=== PATIENT | female | born 1995 | race Caucasian/White ===

== ENCOUNTER 2019-06-14 15:48 | Emergency (ER) | payer MEDICAID, OTHER ==
[~2019-06-14] VITALS: Ht 162.6 cm; Wt 61.8 kg
[2019-06-14] MEDS ORDERED: ACETAMINOPHEN TAB 650MG DOSE (2X325MG) PO ONE (16:15)
[2019-06-14] MEDS ORDERED: MEDR150I10 (16:21)
--- NOTE | 2019-06-14 16:36 | REP ---
CT of the brain without IV contrast: There are no comparisons. There is no subdural or epidural hematoma. There is no intraparenchymal or subarachnoid hemorrhage. There is no edema, mass effect or midline shift. Ventricles are normal size. The visualized paranasal sinuses and mastoid air cells are unremarkable. Impression: Essentially negative emergency CT study of the brain. Electronically Signed by Tarun Mcmahon MD 06/14/2019 04:27 P
--- NOTE | 2019-06-14 16:42 | REP ---
CT of the cervical spine: Axial images are acquired helical scanning and a reformatted sagittal coronal projections. The skull base, C1-C2 are unremarkable. Vertebral body heights and alignment are normal. The facets are normally aligned. The prevertebral soft tissues are normal. There are pedicle screws and stabilization rods at T2. No posterior element fractures are identified. 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 Impression: No fracture or listhesis. Electronically Signed by Tarun Mcmahon MD 06/14/2019 04:34 P
--- NOTE | 2019-06-14 17:18 | REP ---
Right elbow for views : There is no fracture or dislocation. Mineralization and joint spaces are normal. There are no calcifications or foreign bodies. Impression: Negative right elbow . Electronically Signed by Tarun Mcmahon MD 06/14/2019 05:09 P
[2019-06-14 18:20] VITALS: BP 134/82
== END 2019-06-14 18:26 | disposition home or self-care (01) ==
LOC: M ED 15:48 → EDBD 15:48 → M ED 18:26
DX: S13.4XXA Sprain of ligaments of cervical spine, initial encounter (principal); S50.01XA Contusion of right elbow, initial encounter; V43.52XA Car driver injured in collision with other type car in traffic accident, initial encounter; Y92.9 Unspecified place or not applicable; Y93.9 Activity, unspecified; Y99.9 Unspecified external cause status; M54.9 Dorsalgia, unspecified; F17.200 Nicotine dependence, unspecified, uncomplicated; Z79.3 Long term (current) use of hormonal contraceptives; Z88.8 Allergy status to other drugs, medicaments and biological substances

== ENCOUNTER → 2019-07-06 | Outpatient (CLI) | payer OTHER ==
[~2019-07-06] MED LIST: MEDR150I10
== END ==
LOC: M LABSMTC 12:21
PROVIDERS: ATTEND Family Medicine
DX: Z11.59 Encounter for screening for other viral diseases (principal); Z20.828 Contact with and (suspected) exposure to other viral communicable diseases

== ENCOUNTER → 2019-12-24 | Outpatient (CLI) | payer OTHER | LOC: M PAIN 13:16 | PROVIDERS: ATTEND Nurse Practitioner Family | DX: M79.18 Myalgia, other site (principal) ==

== ENCOUNTER → 2020-01-22 | Outpatient (CLI) | payer OTHER | LOC: M LABSMTC 11:30 | PROVIDERS: ATTEND Anesthesiology | DX: Z20.828 Contact with and (suspected) exposure to other viral communicable diseases (principal) | CPT/HCPCS: C9803; U0003 ==

== ENCOUNTER → 2020-01-27 | Outpatient (CLI) | payer OTHER ==
[~2020-01-27] MED LIST changes: +BUPIVACAINE HCL 0.25% 10ML VIAL As Ordered ONE; +BUPIVACAINE HCL 0.25% 30ML VIAL As Ordered ONE; +ONDANSETRON 4 MG ORAL DISINTEGRATING TAB As Ordered ONE; +TRIAMCINOLONE ACETONIDE SUSP 40 MG/ML VIAL (J3301) As Ordered ONE; +diazePAM 5 MG TAB As Ordered ONE
--- NOTE | 2020-01-31 17:00 | ECWPNPC ---
PATIENT NAME: MARY KAY CANCINO : 1995 GENDER: FEMALE VISIT DATE: 01/27/2020 DISCHARGE DATE: 01/27/20 1511 VISIT LOCKED DATE TIME: PHYSICIAN: GIRISH MEADOWS MD PHYSICIAN PAGER NO: ACTIVE RESOURCE: GIRISH MEADOWS MD REASON FOR APPOINTMENT 1. LEFT NECK/UPPER BACK TPI PRESEDATE W/ VALIUM AND OXYCODONE PO HISTORY OF PRESENT ILLNESS GENERAL: -. FALL RISK SCREENING: SCREENING :NO FALLS REPORTED IN THE LAST YEAR PAIN SCREENING: PATIENT HAS A COMPLAINT OF ACUTE OR CHRONIC PAIN :YES LOCATION OF PAIN:NECK, UPPER BACK INTENSITY OF PAIN (SCALE OF 1 TO 10):6 WHAT DOES YOUR PAIN FEEL LIKE:ACHING, CONTINOUS, SHARP, SHOOTING DURATION:CONTINOUS, RHYTHMIC PAIN IS INCREASED BY:ACTIVITIES PAIN IS DECREASED BY:USE OF PAIN MEDICATIONS, OTHERS NURSING NOTE: -. PAIN CENTER INTAKE QUESTIONS: DO YOU HAVE A HISTORY OF MRSA? :NO DO YOU TAKE A BLOOD THINNERS? :NO DO YOU HAVE ANY BLEEDING DISORDERS? :NO ANY NEW NUMBNESS OR WEAKNESS IN YOUR LEGS OR ARMS? :NO ANY PACEMAKER,DEFIBRILLATOR, OR DORSAL COLUMN STIMULATOR? :NO DO YOU HAVE ANY RASHES OR OPEN SORES? :NO ARE YOU ALLERGIC TO IV DYE? :NO ARE YOU DIABETIC? :NO ANY NEW PROBLEMS WITH YOUR MEDICATIONS? :YES GABAPENTIN MAKES HER FEEL "OFF" HAVE YOU RECEIVED A VACCINE IN THE PAST 30 DAYS? :NO DO YOU PLAN TO RECEIVE A VACCINE IN THE NEXT 21 DAYS? :NO DO YOU TAKE ANY IMMUNOSUPPRESSIVE MEDICATIONS? :NO ANY HISTORY OF SEIZURES? :NO ANY HISTORY OF CARDIAC ISSUES OR EVENTS? :NO DO YOU HAVE SLEEP APNEA? :NO ANY RECENT HEAD INJURY? :NO DO YOU HAVE ANY NEW INFECTIONS? :YES "CYST IN BUTTOCKS AREA". COMPLETED ANTIBIOTICS 1-2 WEEKS AGO. IS THERE A CHANCE YOU COULD BE ? :NO ARE YOU BREAST FEEDING? :NO WHEN DID YOU LAST EAT? : -01/25 1900 WHEN DID YOU LAST DRINK? : -01/26 1100 WHAT DID YOU LAST DRINK? : -WATER NAME OF PERSON DRIVING YOU HOME? : -EMY DO YOU HAVE ANY OTHER QUESTIONS OR CONCERNS? : - CURRENT MEDICATIONS TAKING GABAPENTIN 100 MG CAPSULE 1 CAPSULE ORALLY BID, NOTES: NONE X 6 DAYS TAKING BACLOFEN 5 MG TABLET DIRECTED ORALLY THREE TIMES A DAY, NOTES: 01/23 TAKING DEPO-SUBQ PROVERA 104 104 MG/0.65ML SUSPENSION PREFILLED SYRINGE 0.65 ML SUBCUTANEOUS , NOTES: 01/2020 TAKING TYLENOL EXTRA STRENGTH 500 MG TABLET 2 TABLET NEEDED ORALLY EVERY 6 HRS, NOTES: 01/26 630 TAKING IBUPROFEN 600 MG TABLET 1 TABLET WITH FOOD OR MILK NEEDED ORALLY THREE TIMES A DAY, NOTES: 3 DAYS MEDICATION LIST REVIEWED AND RECONCILED WITH THE PATIENT PAST MEDICAL HISTORY MEDICAL HISTORY VERIFIED. ALLERGIES BACTRIM: HIVES - ALLERGY SURGICAL HISTORY NO SURGICAL HISTORY DOCUMENTED. FAMILY HISTORY NO FAMILY HISTORY DOCUMENTED. SOCIAL HISTORY GENERAL: TOBACCO USE ARE YOU A:CURRENT SMOKER 3-4 CIGS/DAY HOW OFTEN DO YOU SMOKE CIGARETTES?EVERY DAY PATIENT COUNSELED ON THE DANGERS OF TOBACCO USE AND URGED TO QUIT:01/26/2020 SMOKING CESSATION INFORMATION GIVEN01/26/2020 PT DECLINED RECREATIONAL DRUG USE DRUG USE?NO LEARNING BARRIERS / SPECIAL NEEDS BARRIERS TO LEARNING?NO DOMESTIC VIOLENCE DO YOU FEEL SAFE IN YOUR ENVIRONMENT?YES PAIN CLINIC PFS, CLERGY, PUBLIC HEALTH REFERRALS HAS THE PATIENT BEEN EDUCATED REGARDING HIS/HER PLAN OF CARE?YES HAS THE PATIENT BEEN EDUCATED REGARDING PAIN, THE RISK FOR PAIN, THE IMPORTANCE OF EFFECTIVE PAIN MANAGEMENT, AND THE PAIN ASSESSMENT PROCESS?YES ADVANCE DIRECTIVE ADVANCE DIRECTIVE DISCUSSED WITH PATIENT:YES PT DECLINED HOSPITALIZATION/MAJOR DIAGNOSTIC PROCEDURE NO HOSPITALIZATION HISTORY. VITAL SIGNS WT 140 LBS, HT 65 IN, BMI 23.29 INDEX, BP 130/65 MM HG, HR 77 /MIN, RR 16 /MIN, TEMP 97.3 F, OXYGEN SAT % 98%, SAFE IN ENV? (Y/N) YES, NA INITIALS SC 13:56, REVIEWED BY: MARILEE. EXAMINATION GENERAL EXAMINATION: THE PATIENT IS ALERT, ORIENTED TIMES THREE AND COOPERATIVE. HEART SHOWS REGULAR RHYTHM, NO MURMURS AND NO GALLOPS. LUNGS ARE CLEAR TO AUSCULTATION. ASSESSMENTS MYALGIA, OTHER SITE - M79.18 (PRIMARY) TREATMENT MYALGIA, OTHER SITE MEDICATION: ZOFRAN ODT TAB 4MG (ONDANSETRON)GABRIELA GARCIA RN 01/27/2020 2:15:17 PM > LOT#[id number], EXP 11/2022 EMERY VICK 01/27/2020 2:21:34 PM > ADMINISTERED PER MD ORDER GABRIELA GARCIA RN 01/27/2020 2:22:46 PM > VERIFIED AT 2:15PM AT THE TIME OF ENTERING LOT#/EXP DATE MEDICATION: VALIUM TAB 5MG ORALLY (DIAZEPAM)GABRIELA GARCIA RN 01/27/2020 2:15:47 PM > LOT#[id number], EXP 07/26 EMERY VICK 01/27/2020 2:22:12 PM > ADMINISTERED PER MD ORDER GABRIELA GARCIA RN 01/27/2020 2:23:17 PM > VERIFIED AT 2:15PM AT THE TIME OF ENTERING LOT #/EXP DATE OTHERS NOTES: PAT DONE BY MARILEE. PROCEDURES PAIN NURSING RECORD PROCEDURE IN ROOM 1350, PHYSICIAN IN ROOM 1422, START 1448, FINISH 1452, PHYSICIAN OUT OF ROOM 1454, STEROID KENALOG, O2 RA, ECG N/A, PATIENT SHIELDED NO, SAFETY STRAP NO, PREP ALCOHOL BT DR MEADOWS, IV INFUSED N/A, DRESSING TEGADERM BY Dayron VICK RN VITALS: EMERY VICK 01/27/2020 2:58:06 PM > 130/75 HR 96 18 100% DISCHARGE: POST PAIN 4, DRESSING SITE DRY AND INTACT, IV N/A, GAIT STEADY, TEACHING COMPLETED, PATIENT ACKNOWLEDGES UNDERSTANDING YES, PATIENT DISCHARGED AT 1503 PN TRIGGER POINT INJECTION WITH STEROIDS PRE PROCEDURE DIAGNOSIS 1. MYALGIA 2. PAIN AT LEFT NECK AREA AND LEFT SHOULDER AREA POST PROCEDURE DIAGNOSIS 1. MYALGIA 2. PAIN AT LEFT NECK AREA AND LEFT SHOULDER AREA PROCEDURE TRIGGER POINT INJECTION AT LEFT NECK AREA AND LEFT SHOULDER AREA SURGEON DR. GIRISH MEADOWS DUPLEX TRIMMER NONE ANESTHESIA LOCAL PRE PROCEDURE NOTE THE PATIENT HAS A HISTORY OF CHRONIC PAIN AT THE LEFT NECK AREA AND LEFT SHOULDER AREA. I EVALUATED THE PATIENT AND REVIEWED THE CHART. THERE IS EVIDENCE OF BANDS OF TISSUE WITH RESTRICTION OF MOVEMENT AND PRESENCE OF TRIGGER POINT AT THE LEFT NECK AREA AND LEFT SHOULDER AREA. I WENT OVER THE RISKS, ALTERNATIVES, AND BENEFITS ASSOCIATED WITH THIS PROCEDURE. THE PATIENT WOULD LIKE TO PROCEED AND GIVE CONSENT TO PERFORMED THE PROCEDURE. I DISCUSSED THAT THE USE OF STEROIDS MAY CONTRIBUTE TO IMMUNOSUPPRESSION OF THE PATIENT'S BODY AGAINST INFECTIONS SUCH COVID-19. THE PATIENT IS AWARE OF THE POTENTIAL COMPLICATIONS ASSOCIATED WITH THIS VIRUS, INCLUDING, BUT NOT LIMITED TO, . THE PATIENT DENIES UNEXPLAINABLE WEIGHT LOSS, FEVER, CHILLS, OR NEW CHANGES IN URINARY OR BOWEL CONTROL. THE PATIENT IS COVID-19 DESCRIPTION OF PROCEDURE THE PATIENT WAS BROUGHT TO THE PROCEDURE ROOM AND PLACED IN THE SITTING POSITION. THE AREA WAS CLEANED WITH ALCOHOL. THE PROCEDURE WAS DONE USING ASEPTIC STERILE TECHNIQUE. A TIMEOUT WAS PERFORMED WHERE LATERALITY AND THE SITE OF THE PROCEDURE WERE CHECKED AND CONFIRMED WITH EVERYONE IN THE ROOM. USING A 25-GAUGE NEEDLE, TRIGGER POINTS WERE INJECTED AT THE LEFT NECK AREA AND LEFT SHOULDER AREA WITH A TOTAL OF 40 ML OF BUPIVACAINE 0.25% AND KENALOG 40 MG. THE MEDICATIONS WERE VERIFIED WITH THE NURSE. THERE WAS NO EVIDENCE OF BLOOD OR PARESTHESIA DURING THE PROCEDURE. THE PATIENT WAS SENT TO THE RECOVERY ROOM. THE PATIENT WAS MOVING THE EXTREMITIES AND DOING WELL. THERE WERE NO COMPLICATIONS DURING THE PROCEDURE. ESTIMATED BLOOD LOSS WAS LESS THAN 5 ML POST PROCEDURE NOTE THE PROCEDURE DONE WAS DISCUSSED WITH THE PATIENT. THE PATIENT WILL BE SEEN IN A FOLLOW UP IN THE NEXT FEW WEEKS. I AM LOOKING FOR LONG LASTING PAIN RELIEF FOR THE PATIENT WITH THIS INTERVENTION. INSTRUCTIONS WERE GIVEN, QUESTIONS WERE ANSWERED, AND THE PATIENT EXPRESSED UNDERSTANDING AND AGREES WITH THE PLAN. I, KAILASH CHAWLA, DOCUMENTED THE ABOVE INFORMATION ACTING A SCRIBE FOR DR. MEADOWS. I HAVE REVIEWED THE ABOVE DOCUMENT, WRITTEN BY KAILASH CHAWLA, JUICE STANDARDIZER, AND I VERIFY THAT IT IS ACCURATE PROCEDURE CODES 46522 INJ TRIGGER POINT /2 MUSCL DISPOSITION & COMMUNICATION FOLLOW UP FOLLOW UP WITH EQUIPMENT SERVICES ASSOCIATE (REASON: POST TPI LEFT NECK AND THORACIC ) ELECTRONICALLY SIGNED BY GIRISH MEADOWS MD, MD ON 01/31/2020 AT 02:11 PM EDT DISCLAIMER : THIS IS A VISIT SUMMARY EXTRACTED FROM THE [employer] CHART. IT IS NOT A COPY OF THE [employer] PROGRESS NOTE. SHAMIR
== END ==
LOC: M PAIN 13:30
PROVIDERS: ATTEND Anesthesiology
DX: M79.18 Myalgia, other site (principal); F17.210 Nicotine dependence, cigarettes, uncomplicated; Z88.1 Allergy status to other antibiotic agents; Z79.899 Other long term (current) drug therapy
CPT/HCPCS: 20552; J3301; Q0162

== ENCOUNTER → 2020-03-10 | Outpatient (CLI) | payer OTHER ==
[~2020-03-10] MED LIST changes: -BUPIVACAINE HCL 0.25% 10ML VIAL As Ordered ONE; -BUPIVACAINE HCL 0.25% 30ML VIAL As Ordered ONE; -ONDANSETRON 4 MG ORAL DISINTEGRATING TAB As Ordered ONE; -TRIAMCINOLONE ACETONIDE SUSP 40 MG/ML VIAL (J3301) As Ordered ONE; -diazePAM 5 MG TAB As Ordered ONE
--- NOTE | 2020-03-14 00:46 | ECWPNPC ---
PATIENT NAME: MARY KAY CANCINO : 1995 GENDER: FEMALE VISIT DATE: 03/10/2020 DISCHARGE DATE: 03/10/20 1443 VISIT LOCKED DATE TIME: PHYSICIAN: RONDA PERKINS PHYSICIAN PAGER NO: ACTIVE RESOURCE: RONDA PERKINS REASON FOR APPOINTMENT 1. POST TPI HISTORY OF PRESENT ILLNESS GENERAL: HERE FOR POST PROCEDURE FOLLOW-UP. HAD TRIGGER POINT INJECTIONS LEFT NECK AND SHOULDER ON 01/27/2020. REPORTS SIGNIFICANT RASH AND REDNESS OVER THE AREAS THAT WERE INJECTED AND ALSO HER ENTIRE FACE FOR 48 HOURS POST PROCEDURE. SHE FEELS THOUGH INJECTION MAY HAVE HELPED WITH THE PAIN. REVIEWED MRI OF THE CERVICAL SPINE. DISCUSSED REFERRAL TO AN AREA RELIEF PILOT. FINDINGS BACLOFEN AND GABAPENTIN HELPFUL THAT WAS PRESCRIBED AT HER LAST VISIT. DENIES SIDE EFFECTS WITH MEDICATIONS. -. FALL RISK SCREENING: SCREENING :TWO OR MORE FALLS WITHOUT INJURY IN THE PAST YEAR PAIN SCREENING: PATIENT HAS A COMPLAINT OF ACUTE OR CHRONIC PAIN :YES LOCATION OF PAIN:LEFT SHOULDER INTENSITY OF PAIN (SCALE OF 1 TO 10):5 WHAT DOES YOUR PAIN FEEL LIKE:ACHING, THROBBING DURATION:CONTINOUS, CONSTANT PAIN IS INCREASED BY:ACTIVITIES PAIN IS DECREASED BY:USE OF PAIN MEDICATIONS TREATMENT/MEDICATIONS USED TO MANAGE PAIN:OPIOIDS LEVEL OF RELIEF FROM PAIN TREATMENTS IN THE PAST:50% PAIN HAS INTERFERED WITH THE FOLLOWING:BATHING/DRESSING, WALKING ABILITY, HOUSEWORK, SLEEP, TRANSPORTATION, TOILETING NURSING NOTE: PT C/O FEELING SICK S/P TRIGGER POINT INJECTIONS 01/27/20. 4 DAYS LATER, PT C/O SINUSITIS UNTIL THANKSGI WEEK, THEN GI VIRUS WITH N/V/D X 3 DAYS WITH TEMP 102, THEN RESOLVED. TODAY, PT C/O SINUSITIS SUBORBITAL BILAT, AFEBRILE. SPOKE WITH TILESETTER Pierre LEVINE, HE IS AWARE OF THE ABOVE, OK TO SEE PT TODAY. EM. PAIN CENTER INTAKE QUESTIONS: DO YOU HAVE A HISTORY OF MRSA? :NO DO YOU TAKE A BLOOD THINNERS? :NO DO YOU HAVE ANY BLEEDING DISORDERS? :NO ANY NEW NUMBNESS OR WEAKNESS IN YOUR LEGS OR ARMS? :NO ANY PACEMAKER,DEFIBRILLATOR, OR DORSAL COLUMN STIMULATOR? :NO DO YOU HAVE ANY RASHES OR OPEN SORES? :NO ARE YOU ALLERGIC TO IV DYE? :NO ARE YOU DIABETIC? :NO ANY NEW PROBLEMS WITH YOUR MEDICATIONS? :NO HAVE YOU RECEIVED A VACCINE IN THE PAST 30 DAYS? :NO DO YOU PLAN TO RECEIVE A VACCINE IN THE NEXT 21 DAYS? :NO DO YOU NEED ANY PRESCRIPTION? :NO DO YOU TAKE ANY IMMUNOSUPPRESSIVE MEDICATIONS? :NO IS THERE A CHANCE YOU COULD BE ? :NO ARE YOU BREAST FEEDING? :NO CURRENT MEDICATIONS TAKING GABAPENTIN 100 MG CAPSULE 1 CAPSULE ORALLY BID TAKING BACLOFEN 5 MG TABLET DIRECTED ORALLY THREE TIMES A DAY TAKING DEPO-SUBQ PROVERA 104 104 MG/0.65ML SUSPENSION PREFILLED SYRINGE 0.65 ML SUBCUTANEOUS TAKING TYLENOL EXTRA STRENGTH 500 MG TABLET 2 TABLET NEEDED ORALLY EVERY 6 HRS TAKING IBUPROFEN 600 MG TABLET 1 TABLET WITH FOOD OR MILK NEEDED ORALLY THREE TIMES A DAY MEDICATION LIST REVIEWED AND RECONCILED WITH THE PATIENT PAST MEDICAL HISTORY SCOLISIS TX'D WITH SPINAL FUSION ALLERGIES BACTRIM: HIVES - ALLERGY SURGICAL HISTORY SPINAL FUSION-WHOLE SPINE 2009 CHOLESYSTECTOMY 2018 FAMILY HISTORY FATHER: ALIVE MOTHER: ALIVE 2 BROTHER(S) , 3 SISTER(S) . 1 SON(S) - HEALTHY. SOCIAL HISTORY GENERAL: TOBACCO USE ARE YOU A:CURRENT SMOKER 3-4 CIGS/DAY ARE YOU INTERESTED IN QUITTING?THINKING ABOUT QUITTING COUNSELED THE PATIENT ON SMOKING CESSATION, EDUCATION [id number]/04/2020 HOW MANY CIGARETTES A DAY DO YOU SMOKE?5 OR LESS HOW OFTEN DO YOU SMOKE CIGARETTES?EVERY DAY PATIENT COUNSELED ON THE DANGERS OF TOBACCO USE AND URGED TO QUIT:01/26/2020 SMOKING CESSATION INFORMATION GIVEN01/26/2020 PT DECLINED LATEX QUESTIONNAIRE LATEX ALLERGY : HAVE YOU EVER DEVELOPED ANY TYPE OF REACTION AFTER HANDLING LATEX PRODUCTS SUCH RUBBER GLOVES, CONDOMS, DIAPHRAGMS, BALLOONS, SOCKS, OR UNDERWEAR?NO LATEX ALLERGY : HAVE YOU EVER DEVELOPED ANY TYPE OF REACTION DURING OR AFTER DENTAL APPOINTMENT, VAGINAL/RECTAL EXAMINATION, SURGICAL PROCEDURE, OR ANY OTHER EXPOSURE?NO LATEX RISK : HAVE YOU EVER HAD ANY DIFFICULTY BREATHING OR HIVES AFTER EATING OR HANDLING ANY FRUITS, OR VEGETABLES; SUCH KIWI, BANANAS, STONE FRUITS, OR CHESTNUTSNO LATEX RISK : DO YOU HAVE A PREVIOUS PERSONAL HISTORY OF MORE THAN NINE SURGERIES, SPINA BIFIDA, OR REPEATED CATHERIZATIONS? NO LATEX RISK : ARE YOU FREQUENTLY EXPOSED TO LATEX PRODUCTS IN YOUR OCCUPATION?NO DATE ASKED : 03/10/2020 ALCOHOL SCREENING DID YOU HAVE A DRINK CONTAINING ALCOHOL IN THE PAST YEAR?NO POINTS0 INTERPRETATIONNEGATIVE RECREATIONAL DRUG USE DRUG USE?NO LANGUAGE LANGUAGES SPOKEN:IRISH LEARNING BARRIERS / SPECIAL NEEDS BARRIERS TO LEARNING?NO HEARING IMPAIRED?NO VISION IMPAIRED?NO COGNITIVELY IMPAIRED?NO READINESS TO LEARN?YES LEARNING PREFERENCES?NO LEARNING CAPABILITIES PRESENT?YES EMOTIONAL BARRIERS?NO SPECIAL DEVICES?NO DOMESTIC VIOLENCE DO YOU FEEL SAFE IN YOUR ENVIRONMENT?YES PAIN CLINIC PFS, CLERGY, PUBLIC HEALTH REFERRALS HAS THE PATIENT BEEN EDUCATED REGARDING HIS/HER PLAN OF CARE?YES HAS THE PATIENT BEEN EDUCATED REGARDING PAIN, THE RISK FOR PAIN, THE IMPORTANCE OF EFFECTIVE PAIN MANAGEMENT, AND THE PAIN ASSESSMENT PROCESS?YES ADVANCE DIRECTIVE ADVANCE DIRECTIVE DISCUSSED WITH PATIENT:YES PT DECLINED HOSPITALIZATION/MAJOR DIAGNOSTIC PROCEDURE SURGERIES REVIEW OF SYSTEMS CONSTITUTIONAL: ANY RECENT FEVER NO . CHILLS NO . WEIGHT CHANGE OF UNKNOWN REASONS NO . GASTROENTEROLOGY: NEW UNEXPLAINABLE CHANGES IN BOWEL CONTROL NO . CONSTIPATION NO . GENITOURINARY: ANY NEW CHANGE IN BLADDER CONTROL? NO . NEUROLOGY: NEW ONSET DIZZINESS OR NEUROLOGICAL CHANGES NOT MENTIONED NO . NEW NUMBNESS OR PAIN PATTERNS NOT MENTIONED AND PERTINENT TO TODAY'S VISIT NO . CARDIOLOGY: NEW CHEST PRESSURE NO . NEW CHEST PAIN NO . RESPIRATORY: UNEXPLAINABLE COUGH NO . NEW SHORTNESS OF BREATH NO . PATIENT HAD SEVERE GI SYMPTOMS OF STOMACH PAIN AND DIARRHEA LAST WEEK FOR 3 DAYS. DENIES FEVER. HAS BEEN SUFFERING FROM NASAL CONGESTION AND SINUSITIS TYPE SYMPTOMS THIS WEEK AND TODAY. I'VE ENCOURAGED HER TO GO TO URGENT CARE FOR EVALUATION/QUESTIONABLE COVID 19 SYMPTOMS. VITAL SIGNS WT 144.6 LBS, HT 65 IN, BMI 24.06 INDEX, BP 129/93 MM HG, HR 84 /MIN, RR 16 /MIN, TEMP 97.9 F, OXYGEN SAT % 100%, SAFE IN ENV? (Y/N) Y, NA INITIALS NJ 13:57, REVIEWED BY: EM. EXAMINATION GENERAL: EXAM WAS DEFERRED DUE TO PATIENT'S SYMPTOMS OF ILLNESS. ASSESSMENTS MYALGIA, OTHER SITE - M79.18 (PRIMARY) OTHER CHRONIC PAIN - G89.29 TREATMENT MYALGIA, OTHER SITE REFERRAL TO:[facility] REASON:FACIAL AND INJECTION SITE REDNESS AND RASH POST TRIGGER POINT INJECTION TO LEFT NECK AND SHOULDER ON 01/27/2020. EVALUATE FOR ALLERGY TO BUPIVACAINE 0.25% OR KENALOG USED DURING PROCEDURE OTHER CHRONIC PAIN PAIN PROCEDURE LOGDATE OF [id number]/22/20PROCEDURE:TRIGGER POINT INJECTIONS LEFT NECK AND SHOULDERAMOUNT OF PRE [id number] ZOFRAN, VALIUM 5MGRESULT:IMPROVEMENT POST PROCEDURE. MAY HAVE LIDOCAINE ALLERGY SHE COMPLAINED OF RASH IN FACIAL REDNESS AT INJECTION SITES FOR 48 HOURS POSTPROCEDURE DISPOSITION & COMMUNICATION FOLLOW UP 3 MONTHS (REASON: LEFT NECK/SHOULDER MYALGIA. REVIEW AREA RELIEF PILOT CONSULT) ELECTRONICALLY SIGNED BY DWAYNE FORBES ON 03/13/2020 AT 01:18 PM EST DISCLAIMER : THIS IS A VISIT SUMMARY EXTRACTED FROM THE [facility] CHART. IT IS NOT A COPY OF THE [facility] [employer] PROGRESS NOTE. SHAMIR
== END ==
LOC: M PAIN 13:45
PROVIDERS: ATTEND Nurse Practitioner Family
DX: G89.29 Other chronic pain (principal); M79.18 Myalgia, other site; Z98.1 Arthrodesis status; F17.210 Nicotine dependence, cigarettes, uncomplicated; Z79.899 Other long term (current) drug therapy; Z88.2 Allergy status to sulfonamides

== ENCOUNTER → 2020-03-14 | Outpatient (CLI) | payer SELFPAY | LOC: M LABCAHC 13:00 | PROVIDERS: ATTEND Pediatrics | DX: Z11.59 Encounter for screening for other viral diseases (principal) ==

== ENCOUNTER → 2020-04-13 | Outpatient (CLI) | payer SELFPAY | LOC: M LABSMTC 13:37 | PROVIDERS: ATTEND Pediatrics | DX: Z20.822 Contact with and (suspected) exposure to COVID-19 (principal) ==

== ENCOUNTER → 2020-08-21 | Outpatient (CLI) | payer OTHER ==
--- NOTE | 2020-08-25 01:37 | ECWPNPC ---
PATIENT NAME: MARY KAY CANCINO : 1995 GENDER: FEMALE VISIT DATE: 08/21/2020 DISCHARGE DATE: 08/21/20 1444 VISIT LOCKED DATE TIME: PHYSICIAN: RONDA PERKINS PHYSICIAN PAGER NO: ACTIVE RESOURCE: RONDA PERKINS REASON FOR APPOINTMENT 1. NF-LEFT NECK/SHOULDER HISTORY OF PRESENT ILLNESS DEPRESSION SCREENING: PHQ-2 (2015 EDITION) LITTLE INTEREST OR PLEASURE IN DOING THINGS?NOT AT ALL FEELING DOWN, DEPRESSED, OR HOPELESS?NOT AT ALL TOTAL SCORE0 GENERAL: BEING SEEN TODAY FOR FOLLOW-UP OF PERSISTENT NECK PAIN. THIS IS A NO FAULT INSURANCE CLAIM. HAD SEVERE FACIAL AND CHEST FLUSHING AFTER TRIGGERPOINTS DONE APPROXIMATELY 6 MONTHS AGO. WE WANT TO PURSUE ALLERGY TESTING BUT WERE UNABLE TO FIND AN FOREST ECONOMIST THAT PARTICIPATED WITH NO FAULT. -. FALL RISK SCREENING: SCREENING : NO FALLS REPORTED IN THE LAST YEAR. PAIN SCREENING: PATIENT HAS A COMPLAINT OF ACUTE OR CHRONIC PAIN :YES LOCATION OF PAIN:HEAD, LEFT SHOULDER INTENSITY OF PAIN (SCALE OF 1 TO 10):4 WHAT DOES YOUR PAIN FEEL LIKE:BURNING, SHOOTING, OTHER STIFFNESS DURATION:ONLY WITH SPECIFIC ACTIVITIES, INTERMITTENT PAIN IS INCREASED BY:ACTIVITIES, OTHERS SLEEPING THE WRONG WAY PAIN IS DECREASED BY:USE OF PAIN MEDICATIONS NURSING NOTE: -. PAIN CENTER INTAKE QUESTIONS: DO YOU HAVE A HISTORY OF MRSA? :NO DO YOU TAKE A BLOOD THINNERS? :NO DO YOU HAVE ANY BLEEDING DISORDERS? :NO ANY NEW NUMBNESS OR WEAKNESS IN YOUR LEGS OR ARMS? :NO ANY PACEMAKER,DEFIBRILLATOR, OR DORSAL COLUMN STIMULATOR? :NO DO YOU HAVE ANY RASHES OR OPEN SORES? :NO ARE YOU ALLERGIC TO IV DYE? :NO ARE YOU DIABETIC? :NO ANY NEW PROBLEMS WITH YOUR MEDICATIONS? :NO HAVE YOU RECEIVED A VACCINE IN THE PAST 30 DAYS? :YES IF SO WHAT VACCINE AND WHEN? 2ND COVID 08/14/2020 DO YOU PLAN TO RECEIVE A VACCINE IN THE NEXT 21 DAYS? :NO DO YOU NEED ANY PRESCRIPTION? :NO DO YOU TAKE ANY IMMUNOSUPPRESSIVE MEDICATIONS? :NO IS THERE A CHANCE YOU COULD BE ? :NO ARE YOU BREAST FEEDING? :NO CURRENT MEDICATIONS TAKING DEPO-SUBQ PROVERA 104 104 MG/0.65ML SUSPENSION PREFILLED SYRINGE 0.65 ML SUBCUTANEOUS TAKING TYLENOL EXTRA STRENGTH 500 MG TABLET 2 TABLET NEEDED ORALLY EVERY 6 HRS TAKING IBUPROFEN 600 MG TABLET 1 TABLET WITH FOOD OR MILK NEEDED ORALLY THREE TIMES A DAY TAKING BACLOFEN 5 MG TABLET DIRECTED ORALLY THREE TIMES A DAY TAKING GABAPENTIN 300 MG CAPSULE 1 CAPSULE ORALLY BID MEDICATION LIST REVIEWED AND RECONCILED WITH THE PATIENT PAST MEDICAL HISTORY SCOLISIS TX'D WITH SPINAL FUSION FALL ON NO INJURIES , DID NOT GO ER ALLERGIES BACTRIM: HIVES - ALLERGY SOCIAL HISTORY GENERAL: TOBACCO USE ARE YOU A:CURRENT SMOKER 3-4 CIGS/DAY ARE YOU INTERESTED IN QUITTING?THINKING ABOUT QUITTING COUNSELED THE PATIENT ON SMOKING CESSATION, EDUCATION [id number]/17/2021 HOW MANY CIGARETTES A DAY DO YOU SMOKE?5 OR LESS HOW OFTEN DO YOU SMOKE CIGARETTES?EVERY DAY PATIENT COUNSELED ON THE DANGERS OF TOBACCO USE AND URGED TO QUIT:01/26/2020 SMOKING CESSATION INFORMATION GIVEN01/26/2020 PT DECLINED LATEX QUESTIONNAIRE LATEX ALLERGY : HAVE YOU EVER DEVELOPED ANY TYPE OF REACTION AFTER HANDLING LATEX PRODUCTS SUCH RUBBER GLOVES, CONDOMS, DIAPHRAGMS, BALLOONS, SOCKS, OR UNDERWEAR?NO LATEX ALLERGY : HAVE YOU EVER DEVELOPED ANY TYPE OF REACTION DURING OR AFTER DENTAL APPOINTMENT, VAGINAL/RECTAL EXAMINATION, SURGICAL PROCEDURE, OR ANY OTHER EXPOSURE?NO LATEX RISK : HAVE YOU EVER HAD ANY DIFFICULTY BREATHING OR HIVES AFTER EATING OR HANDLING ANY FRUITS, OR VEGETABLES; SUCH KIWI, BANANAS, STONE FRUITS, OR CHESTNUTSNO LATEX RISK : DO YOU HAVE A PREVIOUS PERSONAL HISTORY OF MORE THAN NINE SURGERIES, SPINA BIFIDA, OR REPEATED CATHERIZATIONS? NO LATEX RISK : ARE YOU FREQUENTLY EXPOSED TO LATEX PRODUCTS IN YOUR OCCUPATION?NO DATE ASKED : 08/21/2020 ALCOHOL USE: NO. ALCOHOL SCREENING DID YOU HAVE A DRINK CONTAINING ALCOHOL IN THE PAST YEAR?NO POINTS0 INTERPRETATIONNEGATIVE RECREATIONAL DRUG USE DRUG USE?NO LANGUAGE LANGUAGES SPOKEN:NIUEAN LEARNING BARRIERS / SPECIAL NEEDS BARRIERS TO LEARNING?NO HEARING IMPAIRED?NO VISION IMPAIRED?YES COGNITIVELY IMPAIRED?NO READINESS TO LEARN?YES LEARNING PREFERENCES?NO LEARNING CAPABILITIES PRESENT?YES EMOTIONAL BARRIERS?NO SPECIAL DEVICES?NO SPRAY MAKER NEEDED?NO DOMESTIC VIOLENCE DO YOU FEEL SAFE IN YOUR ENVIRONMENT?YES - HAS THE PATIENT BEEN EDUCATED REGARDING HIS/HER PLAN OF CARE?YES HAS THE PATIENT BEEN EDUCATED REGARDING PAIN, THE RISK FOR PAIN, THE IMPORTANCE OF EFFECTIVE PAIN MANAGEMENT, AND THE PAIN ASSESSMENT PROCESS?YES ADVANCE DIRECTIVE ADVANCE DIRECTIVE DISCUSSED WITH PATIENT:YES PT DECLINED REVIEW OF SYSTEMS CONSTITUTIONAL: ANY RECENT FEVER NO . CHILLS NO . WEIGHT CHANGE OF UNKNOWN REASONS NO . GASTROENTEROLOGY: NEW UNEXPLAINABLE CHANGES IN BOWEL CONTROL NO . CONSTIPATION NO . GENITOURINARY: ANY NEW CHANGE IN BLADDER CONTROL? NO . NEUROLOGY: NEW ONSET DIZZINESS OR NEUROLOGICAL CHANGES NOT MENTIONED NO . NEW NUMBNESS OR PAIN PATTERNS NOT MENTIONED AND PERTINENT TO TODAY'S VISIT NO . CARDIOLOGY: NEW CHEST PRESSURE NO . PATIENT DENIES NO . RESPIRATORY: UNEXPLAINABLE COUGH NO . NEW SHORTNESS OF BREATH NO . VITAL SIGNS WT 142 LBS, HT 65 IN, BMI 23.63 INDEX, BP 131/70 MM HG, HR 58 /MIN, RR 16 /MIN, TEMP 99.3 F, OXYGEN SAT % 100%, SAFE IN ENV? (Y/N) YES, NA INITIALS SC 13:55T.PARDEEP GUSMAN. EXAMINATION GENERAL EXAMINATION: GENERALAWAKE,ALERT ,PLEASANT . PSYCHAFFECT NORMAL . LUNGS:LUNG CUEVAS ARE CLEAR TO AUSCULTATION BILATERALLY. GOOD MOVEMENT OF AIR . HEART:S1, S2 IN A REGULAR RATE AND RHYTHM. NO SIGNIFICANT MURMURS, RUBS OR GALLOPS NOTED . ASSESSMENTS MYALGIA, OTHER SITE - M79.18 (PRIMARY) TREATMENT MYALGIA, OTHER SITE NOTES: CONTINUE HOME EXERCISE AND STRETCHING. ADVISED TO TRY VOLTAREN GEL [id number] TO LEFT NECK AND SHOULDER. ADVISED TO USE [id number] IBUPROFEN AND ACETAMINOPHEN 2-3 TIMES A DAY NEEDED FOR SEVERE PAIN EPISODES. PROCEDURE CODES FA211 ESTABILISHED PATIENT [facility] CHARGE DISPOSITION & COMMUNICATION FOLLOW UP PATIENT WILL CALL FOR FOLLOW-UP (REASON: NECK PAIN) ELECTRONICALLY SIGNED BY DWAYNE FORBES ON 08/24/2020 AT 02:00 PM EDT DISCLAIMER : THIS IS A VISIT SUMMARY EXTRACTED FROM THE [employer] CHART. IT IS NOT A COPY OF THE [employer] PROGRESS NOTE. SHAMIR
== END ==
LOC: M PAIN 13:45
PROVIDERS: ATTEND Nurse Practitioner Family
DX: M79.18 Myalgia, other site (principal); F17.210 Nicotine dependence, cigarettes, uncomplicated; Z88.1 Allergy status to other antibiotic agents; Z79.899 Other long term (current) drug therapy

== ENCOUNTER → 2020-10-27 | Outpatient (CLI) | payer OTHER ==
[~2020-10-27] MED LIST changes: +GABA-282 PO; +NORE1PAT TD; +OMEP-221 PO; +ONDA4TAB6 PO
== END ==
LOC: M LABSMTC 12:58
PROVIDERS: ATTEND Anesthesiology
DX: Z01.812 Encounter for preprocedural laboratory examination (principal); Z20.822 Contact with and (suspected) exposure to COVID-19

== ENCOUNTER 2021-03-27 21:05 | Emergency (ER) | payer OTHER ==
[~2021-03-27] VITALS: Ht 162.6 cm; Wt 55.1 kg
[~2021-03-27 21:05] MED LIST changes: +ACET1TAB55 PO; +IBUP200C25 PO
[2021-03-27 21:06] VITALS: BP 119/72
[2021-03-27] MEDS ORDERED: SUBO8MIS PO (21:19)
--- NOTE | 2021-03-27 23:27 | REPVR ---
PROCEDURE INFORMATION: Exam: US Duplex Lower Extremity Veins, Bilateral Exam date and time: 03/27/21 (10:03pm) Age: 25 years old Clinical indication: Bilateral leg swelling TECHNIQUE: Imaging protocol: Real-time duplex ultrasound of the extremities with 2-D dumont scale, color Doppler flow and spectral waveform analysis with image documentation. Complete examination focused on the bilateral lower extremity veins. COMPARISON: No relevant prior studies available FINDINGS: Right deep veins: Unremarkable. The common femoral, femoral, proximal profunda femoral, popliteal and calf veins are patent without thrombus. Normal Doppler waveforms. Normal compressibility and/or augmentation response. Right superficial veins: Saphenofemoral junction is patent without thrombus. Left deep veins: Unremarkable. The common femoral, femoral, proximal profunda femoral, popliteal and calf veins are patent without thrombus. Normal Doppler waveforms. Normal compressibility and/or augmentation response. Left superficial veins: Saphenofemoral junction is patent without thrombus. Soft tissues: Unremarkable. IMPRESSION: No evidence of deep vein thrombosis (both legs examined). Electronically signed by: Deann Greer On 03/27/2021 23:26:48 PM
== END 2021-03-28 02:33 | disposition left against medical advice (07) ==
LOC: M ED 21:05
DX: Z53.21 Procedure and treatment not carried out due to patient leaving prior to being seen by health care provider (principal)

== ENCOUNTER 2022-02-20 22:47 | Emergency (ER) | payer OTHER ==
[~2022-02-20] VITALS: Ht 162.6 cm; Wt 59.0 kg
[2022-02-20 22:47] VITALS: BP 138/69
[~2022-02-20 22:47] MED LIST changes: -OMEP-221 PO; +OMEP40CA5 PO; +SUBO8MIS PO
[2022-02-20] MEDS ORDERED: ZOLO25TA PO (22:57)
[2022-02-20] MEDS ORDERED: BUSP5TA PO (22:57)
== END 2022-02-21 03:20 | disposition left against medical advice (07) ==
LOC: M ED 22:47
DX: Z53.21 Procedure and treatment not carried out due to patient leaving prior to being seen by health care provider (principal)